=== PATIENT | female | born 1970 | race Two or more races ===

== ENCOUNTER 2018-01-07 17:47 | Emergency (ER) | payer MEDICAID, OTHER ==
[~2018-01-07] VITALS: Ht 162.6 cm; Wt 54.4 kg
[2018-01-07 18:03] VITALS: BP 141/83
== END 2018-01-07 20:17 | disposition left against medical advice (07) ==
LOC: ER 17:59
DX: F41.9 Anxiety disorder, unspecified (principal); Z76.0 Encounter for issue of repeat prescription; Z53.21 Procedure and treatment not carried out due to patient leaving prior to being seen by health care provider